=== PATIENT | female | born 1960 | race Caucasian/White ===

== ENCOUNTER 2017-02-20 03:36 | Inpatient (IN) | payer OTHER ==
[2017-02-20] VITALS (13 sets, daily range): BP systolic 123–156; BP diastolic 60–84; PULSE 81–106; RESP 17–22; TEMP 95.4–97.8; O2SAT 92–100
[~2017-02-20] VITALS: Ht 172.7 cm; Wt 65.0 kg
[~2017-02-20 03:36] MED LIST: METO25 PO; PARO40TA PO; PAXI20TA26 PO; PRIN10TA PO; PRIN20TA2 PO; VIST25CA PO; XANA1TAB6 PO
[2017-02-20 03:58] LABS: AUTOMATED NEUTROPHIL # 4.8 TH/MM3 (1.8-7.7); BASOPHIL # 0.2 TH/MM3 (0-0.2); BASOPHIL % 2.4 % (0.0-2.0); EOSINOPHIL # 0.8 TH/MM3 (0-0.4); EOSINOPHIL % 9.7 % (0.0-4.0); HEMATOCRIT 42.2 % (35.0-46.0); HEMO FLAGS DIFF FINAL; LYMPH % 22.4 % (9.0-44.0); LYMPHOCYTE # 1.9 TH/MM3 (1.0-4.8); MEAN CORPUSCULAR HEMOGLOBIN 30.9 PG (27.0-34.0); MEAN CORPUSCULAR HGB CONC 33.6 % (32.0-36.0); MONO % 8.9 % (0.0-8.0); NEUT % 56.6 % (16.0-70.0); PLATELET COUNT 292 TH/MM3 (150-450); RED BLOOD COUNT 4.59 MIL/MM3 (4.00-5.30); RED CELL DISTRIBUTION WIDTH 12.9 % (11.6-17.2); WHITE BLOOD COUNT 8.4 TH/MM3 (4.0-11.0)
[2017-02-20] MEDS ORDERED: methylPREDNISolone SOD SUCC 125 MG/2 ML VIAL IVP ONE (04:00)
[2017-02-20 04:07] LABS: AMPHETAMINE, URINE NEG (NEG); BARBITURATES, URINE NEG (NEG); COCAINE, URINE NEG (NEG)
[2017-02-20] MEDS: RESP: ALBUTEROL 2.5 MG/IPRATROPIUM 0.5 MG NEB (SCH) INH ×5 (04:22→20:39)
[2017-02-20 04:32] LABS: ANION GAP 5 MEQ/L (5-15); BLOOD UREA NITROGEN 13 MG/DL (7-18); CHLORIDE 106 MEQ/L (98-107); GLOMERULAR FILTRATION RATE 76 ML/MIN (>89); POTASSIUM 3.6 MEQ/L (3.5-5.1); SODIUM (NA) 140 MEQ/L (136-145)
[2017-02-20 04:35] LABS: CREATINE KINASE 206 U/L (26-192)
[2017-02-20 04:48] LABS: BLOOD GAS BASE EXCESS 1.2 mmol/L (-2-2); BLOOD GAS CARBOXYHEMOGLOBIN 1.4 % (0-4); BLOOD GAS HCO3 27 mmol/L (22-26); BLOOD GAS METHEMOGLOBIN 0.5 % (0-2); BLOOD GAS O2 HGB SATURATION 98 % (90-100); BLOOD GAS OXYGEN CONTENT 19.2 Vol % (12.0-20.0); BLOOD GAS PCO2 55 mmHg (38-42); BLOOD GAS PO2 298 mmHG (61-120); BLOOD GAS TOTAL HGB 13.5 G/DL (12.0-16.0); TEMP CORR TO 98.6
[2017-02-20 04:49] LABS: CRITICAL VALUE YES; DRAW SITE RT RADIAL; LITER FLOW 15 L/M; NUMBER OF ARTERIAL PUNCTURES 1; STAT YES; ULNAR PULSE PRESENT
--- NOTE | 2017-02-20 05:14 | RADRPT ---
EXAM DATE/TIME: 02/20/2017 04:46 [place] COMPARISON: No previous studies available for comparison. INDICATIONS : Chest pain, short of breath. MEDICAL HISTORY : Hypertension. Chronic obstructive pulmonary disease. SURGICAL HISTORY : None. ENCOUNTER: Initial ACUITY: 2 days PAIN SCORE: 5/10 LOCATION: chest FINDINGS: A single view of the chest demonstrates the lungs to be symmetrically aerated without evidence of mas s, infiltrate or effusion. The lungs are hyperinflated bilaterally. The cardiomediastinal contours ar e unremarkable. Osseous structures are intact. CONCLUSION: Hyperinflation suggesting COPD. No acute infiltrate or effusion. Jesus De León Jr., MD on February 20, 2017 at 5:12 Board Certified Radiologist. This report was verified electronically.
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
[2017-02-20] MEDS ORDERED: RESP: ALBUTEROL 2.5 MG/3 ML NEB (PRN) INH (05:30)
[2017-02-20] MEDS ORDERED: SODIUM CHLORIDE 0.9% FLUSH 10 ML FLUSH IV FLUSH PRN (05:30)
[2017-02-20] MEDS: ENOXAPARIN SODIUM 40 MG/0.4 ML SYRINGE SQ SCH (06:15)
[2017-02-20] MEDS: methylPREDNISolone SOD SUCC 125 MG/2 ML VIAL IVP SCH ×3 (06:15→17:52)
[2017-02-20] MEDS: LEVOFLOXACIN 750 MG PREMIX INJ 150 ML IV SCH (06:21)
[2017-02-20 07:20] LABS: APTT (PATIENT) 23.8 SEC (24.3-30.1); PROTHROMBIN TIME - PATIENT 10.7 SEC (9.8-11.6)
[2017-02-20] MEDS ORDERED: ALPRAZolam 0.25 MG TAB PO PRN (07:45)
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
[2017-02-20] MEDS: SODIUM CHLORIDE 0.9% FLUSH 10 ML FLUSH IV FLUSH SCH ×2 (08:43→21:40)
[2017-02-20] MEDS: ACETAMINOPHEN 325 MG TAB PO PRN ×3 (08:43→21:41)
--- NOTE | 2017-02-20 10:32 | EKG ---
Date Performed: 02/20/2017 Time Performed: 03:59:12 PTAGE: 56 years EKG: Sinus rhythm ANTEROSEPTAL MYOCARDIAL INFARCTION ABNORMAL ECG PREVIOUS TRACING : 01/12/2009 14.13 DOCTOR: Reagan Dueñas Interpretating Date/Time 02/20/2017 10:30:56
[2017-02-20] MEDS: ALPRAZolam 0.5 MG TAB PO PRN ×2 (15:16→21:40)
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
[2017-02-20] MEDS: BUDESONIDE-FORMOTEROL 160/4.5 MCG INHALER INH SCH (21:39)
[2017-02-21] VITALS (11 sets, daily range): BP systolic 128–152; BP diastolic 58–72; PULSE 70–122; RESP 18; TEMP 97.3–98.2; O2SAT 93–99
[2017-02-21] MEDS: methylPREDNISolone SOD SUCC 125 MG/2 ML VIAL IVP SCH ×4 (00:27→17:56)
[2017-02-21] MEDS: RESP: ALBUTEROL 2.5 MG/IPRATROPIUM 0.5 MG NEB (SCH) INH ×4 (03:36→22:14)
[2017-02-21 05:11] LABS: AUTOMATED NEUTROPHIL # 14.9 TH/MM3 (1.8-7.7); BASOPHIL % 0.2 % (0.0-2.0); HEMATOCRIT 42.4 % (35.0-46.0); HEMO FLAGS DIFF FINAL; LYMPH % 4.6 % (9.0-44.0); LYMPHOCYTE # 0.8 TH/MM3 (1.0-4.8); MEAN CELL VOLUME 92.1 FL (80.0-100.0); MEAN CORPUSCULAR HEMOGLOBIN 30.4 PG (27.0-34.0); MONO % 4.5 % (0.0-8.0); NEUT % 90.7 % (16.0-70.0); PLATELET COUNT 314 TH/MM3 (150-450); RED CELL DISTRIBUTION WIDTH 12.6 % (11.6-17.2); WHITE BLOOD COUNT 16.5 TH/MM3 (4.0-11.0)
[2017-02-21 05:34] LABS: BICARBONATE 28.6 MEQ/L (21.0-32.0); POTASSIUM 4.4 MEQ/L (3.5-5.1)
[2017-02-21] MEDS: LEVOFLOXACIN 750 MG PREMIX INJ 150 ML IV SCH (05:53)
[2017-02-21] MEDS: ENOXAPARIN SODIUM 40 MG/0.4 ML SYRINGE SQ SCH (05:53)
[2017-02-21] MEDS: ALPRAZolam 0.5 MG TAB PO PRN ×3 (05:54→17:56)
[2017-02-21] MEDS: ACETAMINOPHEN 325 MG TAB PO PRN ×2 (05:54→11:13)
[2017-02-21] MEDS: SODIUM CHLORIDE 0.9% FLUSH 10 ML FLUSH IV FLUSH SCH ×2 (08:15→20:22)
[2017-02-21] MEDS: BUDESONIDE-FORMOTEROL 160/4.5 MCG INHALER INH SCH ×2 (08:15→20:22)
--- NOTE | 2017-02-21 11:10 | HHI.PR ---
Subjective Remarks 56 YOWF with COPD exac, nicotine use, anxiety Not using 02 Anxious, wants to go home " I did't get nicoderm" Did't sleep due to too much noise around Objective Vital Signs Vital Signs Date Time Temp Pulse Resp B/P Pulse Ox O2 Delivery O2 Flow Rate FiO2 02/21/17 09:33 93 02/21/17 08:03 88 02/21/17 07:31 98.0 80 18 138/72 99 02/21/17 06:55 22 02/21/17 06:22 98.2 70 18 128/72 96 02/21/17 03:39 96 Simple Mask 6.00 02/20/17 20:45 98 02/20/17 20:40 96 Simple Mask 6.00 02/20/17 20:05 97.8 82 18 133/77 97 02/20/17 16:17 96.1 106 20 136/84 98 02/20/17 12:18 92 02/20/17 12:06 95.4 98 20 156/70 92 I/O 02/20/17 02/20/17 02/20/17 02/21/17 02/21/17 02/21/17 07:00 15:00 23:00 07:00 15:00 23:00 Intake Total 750 ml 650 ml Balance 750 ml 650 ml Intake Oral 600 ml 500 ml IV Total 150 ml 150 ml # Voids 2 1 Result Diagram: 02/21/17 0456 02/21/17 0456 Objective Remarks GENERAL: MBMN WF, NAD SKIN: Warm and dry. HEAD: Normocephalic. EYES: No scleral icterus. No injection or drainage. NECK: Supple, trachea midline. No JVD or lymphadenopathy. CARDIOVASCULAR: Regular rate and rhythm without murmurs, gallops, or rubs. RESPIRATORY: Breath sounds equal bilaterally. No accessory muscle use Exp Rhonchi. GASTROINTESTINAL: Abdomen soft, non-tender, nondistended. MUSCULOSKELETAL: No cyanosis, or edema. BACK: Nontender without obvious deformity. No CVA tenderness. A/P Assessment and Plan COPD Exac Bronchitis Anxiety, depression Nicotine use PLAN: IV Solumedrol Cont Abx Nicoderm 14 mg patch daily Smoking cessation Check PFT Aerosol nebs Symbicort 2 puffs bid. Andres Fournier MD Feb 21, 2017 11:10
[2017-02-21] MEDS ORDERED: ACETAMINOPHEN 500 MG CPLT PO PRN (11:15)
[2017-02-21] MEDS: NICOTINE 14 MG/24 HR PATCH T-DERMAL SCH (11:57)
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
[2017-02-21] MEDS ORDERED: XANA1TAB2 PO (13:14)
[2017-02-21] MEDS ORDERED: BENZONATATE 100 MG CAP PO PRN (13:15)
[2017-02-21] MEDS ORDERED: AMLO10 PO (13:25)
[2017-02-21] MEDS ORDERED: SERT-132 PO (13:25)
[2017-02-21] MEDS ORDERED: BACL10TA PO (13:25)
[2017-02-21] MEDS ORDERED: LISI-515 PO (13:25)
--- NOTE | 2017-02-21 13:26 | HHI.PR ---
Subjective History of Present Illness PT SEEN ALERT DESATURATED TO 70 % WALKING ON ROOM AIR DC HELD WILL NEED HOME 02 CASE D/W DR KWOK NO MED REC DONE? NO CP NO FEVER VOIDING Review of Systems Constitutional Constitutional: Fatigue Throat Throat: Sore Throat, Hoarse Pulmonary Respiratory: Coughing, Shortness of Breath, Wheezing GI/Abdomen GI/Abdominal Exam: Positive Bowel Movement Musculoskeletal MS: Weakness Neurologic Neurologic: Dizziness Psychiatric Psychiatric: Normal Mood Allergic/Immunologic Allergic/Immunologic: Asthma, Allergy, Rhinorrhea, Sneezing Vitals/Results Intake & Output 02/20/17 02/20/17 02/21/17 15:00 23:00 07:00 Intake Total 750 ml Balance 750 ml Intake Oral 600 ml IV Total 150 ml # Voids 2 Vital Signs Vital Signs Date Time Temp Pulse Resp B/P Pulse Ox O2 Delivery O2 Flow Rate FiO2 02/21/17 11:43 97.3 82 18 152/65 97 02/21/17 09:33 93 02/21/17 08:03 88 02/21/17 07:31 98.0 80 18 138/72 99 02/21/17 06:55 22 02/21/17 06:22 98.2 70 18 128/72 96 02/21/17 03:39 96 Simple Mask 6.00 02/20/17 20:45 98 02/20/17 20:40 96 Simple Mask 6.00 02/20/17 20:05 97.8 82 18 133/77 97 02/20/17 16:17 96.1 106 20 136/84 98 CBC/BMP: 02/21/17 0456 02/21/17 0456 Lab Results Laboratory Tests Test 02/21/17 04:56 White Blood Count 16.5 TH/MM3 Red Blood Count 4.60 MIL/MM3 Hemoglobin 14.0 GM/DL Hematocrit 42.4 % Mean Corpuscular Volume 92.1 FL Mean Corpuscular Hemoglobin 30.4 PG Mean Corpuscular Hemoglobin 33.0 % Concent Red Cell Distribution Width 12.6 % Platelet Count 314 TH/MM3 Mean Platelet Volume 8.6 FL Neutrophils (%) (Auto) 90.7 % Lymphocytes (%) (Auto) 4.6 % Monocytes (%) (Auto) 4.5 % Eosinophils (%) (Auto) 0.0 % Basophils (%) (Auto) 0.2 % Neutrophils # (Auto) 14.9 TH/MM3 Lymphocytes # (Auto) 0.8 TH/MM3 Monocytes # (Auto) 0.7 TH/MM3 Eosinophils # (Auto) 0.0 TH/MM3 Basophils # (Auto) 0.0 TH/MM3 CBC Comment DIFF FINAL Differential Comment Sodium Level 142 MEQ/L Potassium Level 4.4 MEQ/L Chloride Level 106 MEQ/L Carbon Dioxide Level 28.6 MEQ/L Anion Gap 7 MEQ/L Blood Urea Nitrogen 12 MG/DL Creatinine 0.86 MG/DL Estimat Glomerular Filtration 68 ML/MIN Rate Random Glucose 161 MG/DL Calcium Level 10.1 MG/DL Microbiology Microbiology 02/20/17 Gram Stain - Final, Resulted 02/20/17 Sputum Culture - Preliminary, Resulted HEAVY GROWTH NORMAL RESPIRATORY EMMY... Physical Exam General General Appearance: Well Developed, Well Nourished, No Acute Distress, Comfortable Eyes Eye Exam: Pupils Equal, Pupils Reactive Ears & Nose Ears & Nose Exam: Tympanic Membranes Normal, Auditory Canals Normal, Nasal Mucosa [place], Septum Midline Throat Throat Exam: Oral Mucosa [place] & Moist Neck Neck Exam: Neck Supple Pulmonary Resp Exam: Crackles, Decreased Bases, Diminished Breath Sounds Cardiology CV Exam: Regular Chest/Breast Chest/Breast Exam: Discharge Gastrointestinal/Abdomen GI Exam: Soft, Non-Tender, Bowel Sounds Present, Positive Bowel Movement Musculoskeletal MS Exam: Joints Intact, Normal Gait, Normal Tone, Good Strength Integumentary Skin Exam: Clear Extremeties Extremities Exam: No Edema Neurologic Neuro Exam: Alert, Awake, Oriented, Speech Clear, Moving All Extremities, Business Project Analyst Equal, No Focal Deficits Psychiatric Psych Exam: Appropriate Responses VTE Prophylaxis VTE Prophylaxis Device: SCDs VTE Prophylaxis Meds: Lovenox PUD Prophylasis PUD Prophylaxis: Protonix Assessment/Plan Problem List: (1) Acute respiratory failure Plan: PLAN; PPI 02 IS SCD LOVENOX AEROSOLS [place] CULTURES CASE D/W DR KWOK DESATURATED WILL NEED HOME 02 PO LEVAQUIN RX FOR DC DONE CASE D/W RN HOME MEDS NOT IN YET PLAN DC IN AM PER DR KWOK- WILL CALL AGAIN 40 MINUTES (2) COPD exacerbation (3) Tobacco abuse (4) Acute allergic rhinitis (5) Substance abuse Discussed Condition with: Patient Problem Qualifiers (1) Acute respiratory failure: Qualified Code: J96.01 - Acute respiratory failure with hypoxia and hypercapnia Pina Frias DO Feb 21, 2017 13:26
[2017-02-21] MEDS ORDERED: BACLOFEN 10 MG TAB PO PRN (13:30)
[2017-02-21] MEDS ORDERED: OXYGENTANK NAS.CANULA (13:33)
[2017-02-21] MEDS ORDERED: ALPR.5 PO (13:37)
[2017-02-21] MEDS ORDERED: SYMB160A INH (13:37)
[2017-02-21] MEDS ORDERED: IPRASOL INH (13:37)
[2017-02-21] MEDS ORDERED: BENZ100 PO (13:37)
[2017-02-21] MEDS ORDERED: LEVA500T PO (13:37)
[2017-02-21] MEDS ORDERED: MEDR4PAK PO (13:37)
[2017-02-21] MEDS: LISINOPRIL 20 MG TAB PO SCH ×2 (14:54→20:29)
[2017-02-21] MEDS ORDERED: REMOVE OLD NICODERM (NICOTINE) PATCH T-DERMAL SCH (21:00)
[2017-02-21] MEDS ORDERED: SERTRALINE HCL 50 MG TAB PO SCH (21:00)
[2017-02-22] MEDS: methylPREDNISolone SOD SUCC 125 MG/2 ML VIAL IVP SCH ×4 (00:50→17:56)
[2017-02-22] MEDS: ALPRAZolam 0.5 MG TAB PO PRN ×3 (00:50→12:36)
[2017-02-22 03:30] VITALS: BP 141/99; PULSE 94; RESP 18; TEMP 97.2; O2SAT 97
[2017-02-22] MEDS: RESP: ALBUTEROL 2.5 MG/IPRATROPIUM 0.5 MG NEB (SCH) INH ×3 (04:00→15:27)
[2017-02-22 04:08] VITALS: PULSE 74; PULSE 76
[2017-02-22] MEDS: ACETAMINOPHEN 325 MG TAB PO PRN (06:33)
[2017-02-22] MEDS: LEVOFLOXACIN 750 MG PREMIX INJ 150 ML IV SCH (06:34)
[2017-02-22] MEDS: ENOXAPARIN SODIUM 40 MG/0.4 ML SYRINGE SQ SCH (06:35)
[2017-02-22 08:00] VITALS: BP 132/71; PULSE 87; RESP 20; TEMP 97.3; O2SAT 95
[2017-02-22] MEDS: NICOTINE 14 MG/24 HR PATCH T-DERMAL SCH (09:22)
[2017-02-22] MEDS: BUDESONIDE-FORMOTEROL 160/4.5 MCG INHALER INH SCH (09:22)
[2017-02-22] MEDS: LISINOPRIL 20 MG TAB PO SCH (09:22)
[2017-02-22] MEDS: SODIUM CHLORIDE 0.9% FLUSH 10 ML FLUSH IV FLUSH SCH (09:23)
[2017-02-22 09:47] VITALS: O2SAT 99
[2017-02-22 12:00] VITALS: BP 129/74; PULSE 93; RESP 22; TEMP 97.9; O2SAT 96
[2017-02-22] MEDS ORDERED: ALPRAZolam 0.5 MG TAB PO PRN (13:00)
--- NOTE | 2017-02-22 13:59 | HHI.PR ---
Subjective History of Present Illness PT SEEN ANXIOUS ALERT DESATURATED TO 76 % WALKING ON ROOM AIR DC HELD WILL NEED HOME 02 CASE D/W DR KWOK NO MED REC DONE? NO CP NO FEVER VOIDING Review of Systems Constitutional Constitutional: Fatigue Throat Throat: Sore Throat, Hoarse Pulmonary Respiratory: Coughing, Shortness of Breath, Wheezing GI/Abdomen GI/Abdominal Exam: Positive Bowel Movement Musculoskeletal MS: Weakness Neurologic Neurologic: Dizziness Psychiatric Psychiatric: Normal Mood Allergic/Immunologic Allergic/Immunologic: Asthma, Allergy, Rhinorrhea, Sneezing Vitals/Results Intake & Output 02/21/17 02/21/17 02/22/17 15:00 23:00 07:00 Intake Total 650 ml 300 ml 150 ml Balance 650 ml 300 ml 150 ml Intake Oral 500 ml 300 ml 150 ml IV Total 150 ml # Voids 1 1 1 # Bowel Movements 0 Vital Signs Vital Signs Date Time Temp Pulse Resp B/P Pulse Ox O2 Delivery O2 Flow Rate FiO2 02/22/17 09:47 99 Nasal Cannula 2.00 02/22/17 08:00 97.3 87 20 132/71 95 02/22/17 04:08 76 02/22/17 03:30 97.2 94 18 141/99 97 02/21/17 23:57 98.0 95 18 137/63 97 02/21/17 22:14 95 Simple Mask 6.00 02/21/17 19:30 109 02/21/17 19:19 98.2 95 18 129/58 96 02/21/17 16:11 97.3 122 18 145/60 96 CBC/BMP: 02/21/17 0456 02/21/17 0456 Physical Exam General General Appearance: Well Developed, Well Nourished, No Acute Distress, Comfortable Eyes Eye Exam: Pupils Equal, Pupils Reactive Ears & Nose Ears & Nose Exam: Tympanic Membranes Normal, Auditory Canals Normal, Nasal Mucosa [place], Septum Midline Throat Throat Exam: Oral Mucosa [place] & Moist Neck Neck Exam: Neck Supple Pulmonary Resp Exam: Crackles, Decreased Bases, Diminished Breath Sounds Cardiology CV Exam: Regular Chest/Breast Chest/Breast Exam: Discharge Gastrointestinal/Abdomen GI Exam: Soft, Non-Tender, Bowel Sounds Present, Positive Bowel Movement Musculoskeletal MS Exam: Joints Intact, Normal Gait, Normal Tone, Good Strength Integumentary Skin Exam: Clear Extremeties Extremities Exam: No Edema Neurologic Neuro Exam: Alert, Awake, Oriented, Speech Clear, Moving All Extremities, Territory Sales Manager Medical Equal, No Focal Deficits Psychiatric Psych Exam: Appropriate Responses VTE Prophylaxis VTE Prophylaxis Device: SCDs VTE Prophylaxis Meds: Lovenox PUD Prophylasis PUD Prophylaxis: Protonix Assessment/Plan Problem List: (1) Acute respiratory failure Plan: PLAN; PPI 02 IS SCD XANAX PRN LOVENOX AEROSOLS STERO[place] CULTURES CASE D/W DR KWOK DESATURATED WILL NEED HOME 02 PO LEVAQUIN CASE D/W RN HOME MEDS NOT IN YET PLAN DC PER DR KWOK- 02 DELIVERED TO ROOM RX DONE 40 MINUTES (2) COPD exacerbation (3) Tobacco abuse (4) Acute allergic rhinitis (5) Substance abuse Discussed Condition with: Patient, Medical Consult Problem Qualifiers (1) Acute respiratory failure: Qualified Code: J96.01 - Acute respiratory failure with hypoxia and hypercapnia Pina Frias DO Feb 22, 2017 13:59
[2017-02-22 16:00] VITALS: BP 119/56; PULSE 106; RESP 22; TEMP 96.2; O2SAT 98
--- NOTE | 2017-02-22 19:15 | HHI.PR ---
Subjective Remarks 56 YOWF with COPD exac, nicotine use, anxiety Not using 02 Anxious, wants to go home Desaturates on RA Anxious to go home Objective Vital Signs Vital Signs Date Time Temp Pulse Resp B/P Pulse Ox O2 Delivery O2 Flow Rate FiO2 02/22/17 16:00 96.2 106 22 119/56 98 02/22/17 12:00 97.9 93 22 129/74 96 02/22/17 09:47 99 Nasal Cannula 2.00 02/22/17 08:00 97.3 87 20 132/71 95 02/22/17 04:08 76 02/22/17 03:30 97.2 94 18 141/99 97 02/21/17 23:57 98.0 95 18 137/63 97 02/21/17 22:14 95 Simple Mask 6.00 02/21/17 19:30 109 02/21/17 19:19 98.2 95 18 129/58 96 I/O 02/21/17 02/21/17 02/21/17 02/22/17 02/22/17 02/22/17 07:00 15:00 23:00 07:00 15:00 23:00 Intake Total 650 ml 300 ml 150 ml Balance 650 ml 300 ml 150 ml Intake Oral 500 ml 300 ml 150 ml IV Total 150 ml # Voids 1 1 1 # Bowel Movements 0 Result Diagram: 02/21/17 0456 02/21/17 0456 Objective Remarks GENERAL: MBMN WF, NAD SKIN: Warm and dry. HEAD: Normocephalic. EYES: No scleral icterus. No injection or drainage. NECK: Supple, trachea midline. No JVD or lymphadenopathy. CARDIOVASCULAR: Regular rate and rhythm without murmurs, gallops, or rubs. RESPIRATORY: Breath sounds equal bilaterally. No accessory muscle use Exp Rhonchi. GASTROINTESTINAL: Abdomen soft, non-tender, nondistended. MUSCULOSKELETAL: No cyanosis, or edema. BACK: Nontender without obvious deformity. No CVA tenderness. A/P Assessment and Plan COPD Exac Bronchitis Anxiety, depression Nicotine use PLAN: PO Steroids Cont Abx Nicoderm 14 mg patch daily Smoking cessation Check PFT Aerosol nebs Symbicort 2 puffs bid. Will FU in office03/07 Andres Fournier MD Feb 22, 2017 19:15
--- NOTE | 2017-02-24 09:00 | RSPPFT ---
DATE OF PROCEDURE: 02/22/17 COMMENTS: Spirometry with FVC of 2.2 at 65% of predicted, FEV1 of 1.1 at 39%, FEV1/FVC ratio is decreased. Flow is decreased at FEF 25-75. There is no significant response after acutely inhaled bronchodilator treatment. Flow volume loop indicates an obstructive pattern. IMPRESSION: 1. Severe obstructive lung disease. 2. No response after bronchodilator treatment.
== END 2017-02-22 18:15 | disposition home or self-care (01) | DRG 189 ==
LOC: NEPE 03:36 → INTOOBSV 05:19 → NEDA 05:19 → NEPFCDU 06:42 → OBSVTOIN 02-21 15:40 → HOCB 02-22 03:25
PROVIDERS: ADMIT Family Medicine; ATTEND Family Medicine
DX: J96.01 Acute respiratory failure with hypoxia (principal); J44.1 Chronic obstructive pulmonary disease with (acute) exacerbation; I10 Essential (primary) hypertension; F17.210 Nicotine dependence, cigarettes, uncomplicated; F41.9 Anxiety disorder, unspecified; F32.9 Major depressive disorder, single episode, unspecified; J30.9 Allergic rhinitis, unspecified
CPT/HCPCS: 36600; 71010; 80048; 80307; 82550; 82552; 82805; 83605; 83880; 84484; 85025; 85610; 85730; 87040; 87070; 87205; 93005; 94060; 94620; 94640; G0378; J1650; J1956; J2930